=== PATIENT | male | born 1975 | race Caucasian/White ===

== ENCOUNTER 2016-12-22 19:33 | Emergency (ER) | payer MEDICAID ==
[~2016-12-22] VITALS: Ht 162.6 cm; Wt 52.3 kg
[2016-12-22 19:36] VITALS: BP 132/84; PULSE 94; RESP 16; TEMP 98.2; O2SAT 98
[2016-12-22] MEDS ORDERED: AMOX500C PO ×2 (19:54→20:35)
--- NOTE | 2016-12-22 20:35 | PD ---
HPI Chief Complaint: Oral / Dental Pain or Problem Time Seen by Provider: 20:16 Travel History International Travel<30 days: No Contact w/Intl Traveler<30days: No Traveled to known affect area: No History of Present Illness HPI This is a 41 year old male who is visiting from [place] who has had 2 weeks of pressure pain in the right upper jaw, constant, moderate severity, 4/10, worse with chewing. He denies any difficulty swallowing or shortness of breath. He was diagnosed with a dental abscess at home and is supposed to be on Amoxicillin 500 mg but left his antibiotic home which is why he is here today. He denies fevers/chills. PFSH Past Medical History Narrative Medical heart attack at 19 stroke 2011 Cardiac Catheterization: Yes Cardiovascular Problems: Yes ([place] 22 YEARS AGO ) Gastrointestinal Disorders: Yes ( VARACIES ) Neurologic: Yes (STROKE) Tetanus Vaccination: < 5 Years Social History Alcohol Use: No Tobacco Use: Yes Substance Use: Yes (mj) Allergies-Medications (Allergen,Severity, Reaction): Coded Allergies: No Known Allergies (Unverified , 12/22/16) Reported Meds & Prescriptions Reported Meds & Active Scripts Active Reported Amoxicillin 500 Mg Cap 500 Mg PO BID Review of Systems Except as stated in HPI: all other systems reviewed are Neg Physical Exam Narrative GENERAL:Well appearing, no acute distress SKIN: Focused skin assessment warm and dry. HEAD: Atraumatic. Normocephalic. EYES: Pupils equal and round. No injection or drainage. ENT: Moist mucous membranes. poor dentition, no submandibular or sublingual fullness or swelling. NECK: Trachea midline. CARDIOVASCULAR: Regular rate and rhythm. No murmur appreciated. RESPIRATORY: Clear to auscultation. Breath sounds equal bilaterally. GASTROINTESTINAL: Abdomen soft, non-tender, nondistended. MUSCULOSKELETAL: No obvious deformities. NEUROLOGICAL: Awake and alert. No obvious cranial nerve deficits. Moving all extremities. PSYCHIATRIC: Appropriate mood and affect; insight and judgment normal. Data Data Last Documented VS Vital Signs Date Time Temp Pulse Resp B/P (MAP) Pulse Ox O2 Delivery O2 Flow Rate FiO2 12/22/16 19:36 98.2 94 16 132/84 (100) 98 Room Air MDM Medical Decision Making Medical Screen Exam Complete: Yes Emergency Medical Condition: Yes Interpretation(s) afebrile, mild tachycardia, normotensive Differential Diagnosis dental abscess, elisha's angina, dental pain Narrative Course This is a 41 year old male presents to the emergency department with dental pain. He was diagnosed with an early dental abscess and put on antibiotics but he is traveling here and forgot his antibiotic prescription. He was on amoxicillin. He has no signs of a dental emergency and has a reassuring exam. Patient will be prescribed a short course of amoxicillin. Diagnosis Primary Impression: Dental abscess Patient Instructions: General Instructions Additional Instructions: If you develop difficulty breathing, difficulty swallowing, fevers, chills or swelling below your jar neck return to the emergency room. Med/Other Pt SpecificInfo: Prescription(s) given Scripts Amoxicillin (Amoxicillin) 500 Mg Cap 500 MG PO BID for Infection for 7 Days, CAP 0 Refills Prov: Guadalupe Gloria MD 12/22/16 Disposition: 01 DISCHARGE HOME Condition: Stable Guadalupe Gloria MD Dec 22, 2016 20:35
== END 2016-12-22 21:11 | disposition home or self-care (01) ==
LOC: NEPD 19:33
DX: K04.7 Periapical abscess without sinus (principal); Z86.73 Personal history of transient ischemic attack (TIA), and cerebral infarction without residual deficits; Z72.0 Tobacco use
CPT/HCPCS: 99283